=== PATIENT | female | born 1965 | race Caucasian/White ===

== ENCOUNTER 2024-02-19 17:04 | Emergency (ER) | payer OTHER, SELFPAY ==
[2024-02-19 17:12] VITALS: BP 200/106
--- NOTE | 2024-02-19 18:26 | ED.MUSCINJ ---
HPI-Injury
General
Chief Complaint: Fall
Source: patient
Exam Limitations: none
Time Seen by Provider: 02/19/24 18:11
History of Present Illness-Injury
Initial Injury comments:
59-year-old female presents after fall off a ladder yesterday. She fell couple feet off a ladder. She landed on her left side complains of left shoulder pain right ankle pain and a laceration to the right thumb. Last tetanus was more than 10
years ago. She denies shortness of breath or chest pain. No other complaints at this time
Past History
Past History
ED Past Medical History: None
ED Past Surgical History: Tonsilectomy
Social History
Tobacco: Smoker
Alcohol: None
Drug: None
Personal:
Phy Exam
Physical Exam
Physical Exam:
General: Well-appearing female no acute respiratory distress
HEENT: Normocephalic atraumatic
Heart: Regular rate and rhythm no murmurs
Lungs: Clear no wheeze
Musculoskeletal exam: Right ankle swollen and tender over the inferior aspect of the distal fibula. Left shoulder is not deformed and has good range of motion. Bilateral knees have ecchymosis and are nontender without deformity
Skin: 1 cm flap type laceration radial aspect IP joint right thumb superficial nature no current bleeding the edges of the wound are macerated there is no tendon or nerve involvement. She has good sensation to the thumb
Injury Course
Orders/Labs/Results
Orders:
Orders
02/19/24 17:15
CR Ankle - Right Min 3 Views * Urgent
Comment:
Reason For Exam: fall
CR Shoulder - Left Min 2 View* Urgent
Comment:
Reason For Exam: fall
Chest [CR Chest - 2 Views ] Urgent
Comment:
Reason For Exam: fall
02/19/24 18:24
Tetanus/Diphth/Acelpertussis [Adacel] 0.5 ml IM .ONCE ONE
MDM/Problems Addressed
Differential Diagnosis Includes:
Mechanical fall x-rays left shoulder chest and right ankle are all negative for acute fractures pneumothorax dislocations. There is a small laceration to the right thumb measuring 1 cm superficial flap in nature. This was copiously irrigated with
saline and dressed with bacitracin and gauze wrap. Tetanus vaccine updated. Patient about x-rays. Stable for discharge
*Critical Care Note
Total Time (30-74mins, 75-104mins- exclusive of procedures): Not Applicable
ED Attending Note
-
Portions of this chart may have been created with voice recognition software.� Occasional wrong word or��sound alike� substitutions may have occurred due to the inherent limitations of voice recognition software.
Discharge Plan
Departure
Patient Disposition: Home (Routine Discharge)
Date of Disposition: 02/19/24
Time of Disposition: 18:28
Patient with high blood pressure during this ER visit?: No
Discharge Problem:
Laceration, Ankle sprain
Instructions: Wound Care (DC)
Prescriptions:
No Action
levofloxacin 500 MG tablet
500 mg PO DAILY Qty: 7 0RF
hydrocodone-acetaminophen 1 TABLET tablet
1 tab PO Q4HPRN PRN (Reason: severe pain) Qty: 10 0RF
ibuprofen 600 MG tablet
600 mg PO Q6HPRN PRN (Reason: pain) Qty: 20 0RF
Activity Restrictions/Additional Instructions:
Continue to place antibacterial ointment on this. Change dressing as needed. Use Tylenol or ibuprofen for pain. You may ice and elevate your foot. Return if worse otherwise follow-up with your doctor
Interventions
Interventions:
*Risk Screen - Suicide Last Done: 02/19/24 17:12
*General Assessment Last Done: 02/19/24 17:12
*Neglect/Abuse Screening Last Done: 02/19/24 17:12
Discharge Date and Time
Print Language: URDU
[2024-02-19] MEDS: ADACEL 0.5 ML IM (18:35)
== END 2024-02-19 18:30 | disposition home or self-care (01) ==
LOC: EMR 17:04
PROVIDERS: EMERGENCY PHYSICIAN Emergency Medicine; FAMILY PHYSICIAN Family Medicine
DX: M25.571 Pain in right ankle and joints of right foot (principal); F17.200 Nicotine dependence, unspecified, uncomplicated; S93.409A Sprain of unspecified ligament of unspecified ankle, initial encounter; S61.011A Laceration without foreign body of right thumb without damage to nail, initial encounter; W11.XXXA Fall on and from ladder, initial encounter
CPT/HCPCS: 99283; 90471; 71046; 73030; 73610; 90715

== ENCOUNTER 2025-02-03 14:06 | Emergency (ER) | payer SELFPAY ==
[2025-02-03 14:13] VITALS: BP 175/88
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
[2025-02-03] MEDS: TYLENOL 1000 MG PO (16:20)
[2025-02-03 17:40] VITALS: BP 180/86
== END 2025-02-03 17:41 | disposition home or self-care (01) ==
LOC: EMR 14:06
PROVIDERS: EMERGENCY PHYSICIAN Emergency Medicine; FAMILY PHYSICIAN Family Medicine
DX: S39.012A Strain of muscle, fascia and tendon of lower back, initial encounter (principal); S80.211A Abrasion, right knee, initial encounter; V43.62XA Car passenger injured in collision with other type car in traffic accident, initial encounter; F17.200 Nicotine dependence, unspecified, uncomplicated
CPT/HCPCS: 99284; 71101; 72110; 73564